=== PATIENT | female | born 1980 | race African-American/Black ===

== ENCOUNTER 2016-08-16 12:22 | Emergency (ER) | payer OTHER ==
[~2016-08-16] VITALS: Ht 167.6 cm; Wt 86.2 kg
[2016-08-16 12:48] LABS: URINE BILIRUBIN NEGATIVE (Negative); URINE BLOOD 1+ (Negative); URINE COLOR YELLOW; URINE GLUCOSE-RANDOM* NEGATIVE (Negative); URINE KETONES TRACE (Negative); URINE LEUKOCYTES-REFLEX NEGATIVE (Negative); URINE PROTEIN (DIPSTICK) TRACE (Negative); URINE SPECIFIC GRAVITY >= 1.030 (1.003-1.035); URINE UROBILINOGEN 0.2 E.U./dl (0.2-1.0)
[2016-08-16 12:56] LABS: CASTS None Seen /LPF (None Seen); SQUAMOUS >10 Many /LPF (0-3)
[2016-08-16 12:58] LABS: CRYSTALS None Seen /LPF (None Seen); URINE RBC 3-10 Few /HPF (0-2); URINE WBC-REFLEX 0-5 Rare /HPF (0-5)
[2016-08-16 13:02] LABS: ABSOLUTE NEUTROPHILS 3.8 thou/uL (1.4-8.2); BASOPHILS 0.4 % (0.0-2.0); EOSINOPHILS 1.2 % (0.0-3.0); HEMATOCRIT 39.9 % (37.0-47.0); HEMOGLOBIN 13.5 gm/dL (12.0-15.0); LYMPHOCYTES 26.9 % (24.0-44.0); MCH 31.8 pg (26.0-34.0); MCHC 33.7 g/dL (28.0-37.0); MCV 94.3 fL (80.0-100.0); MONOCYTES 8.2 % (1.0-8.0); PLATELET COUNT 196 thou/uL (150-400); POLYS 63.3 % (36.0-66.0); RBC 4.23 mil/uL (4.20-5.00); RDW 13.7 % (10.5-14.5)
[2016-08-16 13:04] LABS: MANUAL DIFF NO
[2016-08-16 13:11] LABS: CALCIUM 9.4 mg/dL (8.5-10.1); CREATININE 0.9 mg/dL (0.6-1.0); POTASSIUM 3.6 mmol/L (3.5-5.1)
[2016-08-16 13:15] LABS: ALBUMIN 4.1 g/dL (3.4-5.0); TOTAL BILIRUBIN 0.5 mg/dL (<0.1-1.0); TOTAL PROTEIN 8.3 g/dL (6.4-8.2)
[2016-08-16] MEDS ORDERED: PERCOCET 5-3251 EACH PO (14:54)
[2016-08-16] MEDS ORDERED: FLOMAX0.4 MG PO (14:54)
[2016-08-16] MEDS ORDERED: ZOFRAN ODT4 MG PO (14:54)
[2016-08-16] MEDS ORDERED: SENOKOT-S1 TA1 PO (14:54)
[2016-08-16 15:11] VITALS: BP 103/58
== END 2016-08-16 15:11 | disposition home or self-care (01) ==
LOC: ER 12:22
PROVIDERS: Emergency Medicine
DX: N20.1 Calculus of ureter (principal); Z87.442 Personal history of urinary calculi; Z88.6 Allergy status to analgesic agent